=== PATIENT | female | born 1985 | race Caucasian/White ===

== ENCOUNTER 2017-05-05 18:19 | Observation (INO) | payer OTHER ==
--- NOTE | 2017-05-05 18:39 | ED ---
General Adult HPI - General Chief complaint: OB/Uterine Contractions Stated complaint: Poss Ectopic Time Seen by Provider: 05/05/17 18:22 Source: patient, RN notes reviewed Mode of arrival: ambulatory Limitations: no limitations - History of Present Illness Initial comments: 31 yo female presents to the ER with cc of with right sided abdominal pain. Patient developed this right-sided abdominal pain a few days ago that led up and today she had the abdominal pain and she's had some vaginal bleeding. Patient states that she went to the hospital and they found out that she was as well as concern for UTI. Due to the as well as the fact that she has not IUD in place the hospital was concerned about a possible ectopic and sent her here for further workup. The patient states that her pain has improved with the morphine that they gave her. Patient states he was on the right side. Patient is a . Patient states that she is not currently having any other symptoms at this time. Patient denies any recent fever, chills, shortness of breath, chest pain, back pain, nausea vomiting, numbness or tingling, dysuria or hematuria, constipation or diarrhea, headaches or visual changes, or any other current symptoms. - Related Data Home Medications Medication Instructions Recorded Confirmed Multivitamins, Thera [Multivitamin 1 tab PO DAILY 05/05/17 05/05/17 (formulary)] Allergies Allergy/AdvReac Type Severity Reaction Status Date / Time No Known Allergies Allergy Verified 05/05/17 18:43 Review of Systems ROS Statement: Those systems with pertinent positive or pertinent negative responses have been documented in the HPI. ROS Other: All systems not noted in ROS Statement are negative. Past Medical History Past Medical History: No Reported History History of Any Multi-Drug Resistant Organisms: None Reported Past Surgical History: No Surgical Hx Reported, Cholecystectomy Additional Past Surgical History / Comment(s): IDU placed may 2016 Past Anesthesia/Blood Transfusion Reactions: No Reported Reaction Past Psychological History: Anxiety, Depression Smoking Status: Former smoker Past Alcohol Use History: None Reported, Occasional, Rare Past Drug Use History: None Reported - Past Family History Father Family Medical History: No Reported History General Exam - General Exam Comments Initial Comments: General: The patient is awake and alert, in no distress, and does not appear acutely ill. Eye: Pupils are equal, round and reactive to light, extra-ocular movements are intact; there is normal conjunctiva bilaterally. No signs of icterus. Ears, nose, mouth and throat: There are moist mucous membranes and no oral lesions. Neck: The neck is supple, there is no tenderness. Cardiovascular: There is a regular rate and rhythm. No murmur, rub or gallop is appreciated. Respiratory: Lungs are clear to auscultation, respirations are non-labored, breath sounds are equal. No wheezes, stridor, rales, or rhonchi. Gastrointestinal: Soft, non-distended, mild tenderness in right lower quadrant of the abdomen without masses or organomegaly noted. There is no rebound or guarding present. No CVA tenderness. Bowel sounds are unremarkable. Back: There is no tenderness to palpation in the midline. There is no obvious deformity. No rashes noted. Musculoskeletal: Normal ROM, no tenderness, There is no pedal edema. There is no calf tenderness or swelling. Sensation intact. Pulses equal bilaterally 2+. Neurological: CN II-XII intact, There are no obvious motor or sensory deficits. Coordination appears grossly intact. Speech is normal. Skin: Skin is warm and dry and no rashes or lesions are noted. Psychiatric: Cooperative, appropriate mood & affect, normal judgment. Limitations: no limitations External exam: Present: normal external exam Speculum exam: Present: vaginal bleeding (Minor), other (Patient did have quite a bit of tenderness noted on speculum exam. There is question if the strings were visualized or not.) By manual exam: Present: uterine tenderness. Absent: adnexal tenderness Course Vital Signs 05/05/17 05/05/17 18:26 19:58 Temperature 99.1 F 98.4 F Pulse Rate 82 72 Respiratory 18 21 Rate Blood Pressure 141/63 124/58 O2 Sat by Pulse 99 100 Oximetry Medical Decision Making - Medical Decision Making 31-year-old female presents to the emergency Department chief complaint of right lower quadrant abdominal pain in . At this time. Work from previous ER transfer was reviewed. This and will order an ultrasound. [facility]' [facility] This time ultrasound was reviewed that does not show an IUP with a malplaced IUD. Patient has no uterine tenderness on exam admits to uterine tenderness. There is question if the strings were visualized or not on exam. At this time Dr. Black this case with Dr. Carrizales who will come in and evaluate the patient. At this time the patient will be admitted for overnight observation per Dr. Carrizales. Patient is in agreement with this plan. - Radiology Data Radiology results: report reviewed, image reviewed Disposition Clinical Impression: Abdominal pain affecting Disposition: ADMITTED IP TO THIS [facility] Condition: Stable Referrals: Shadi Jones DO [Primary Care Provider] - 1-2 days Time of Disposition: 21:54 Decision Date: 05/05/17 Decision Time: 21:54
--- NOTE | 2017-05-05 19:53 | US ---
EXAMINATION TYPE: US OB <= 14 wk fetus DATE OF EXAM: 05/05/2017 COMPARISON: NONE CLINICAL HISTORY: Pain. EC patient with right pelvic pain and vaginal bleeding x 3 days with positive test taken at [facility] this afternoon; IUD per patient; EXAM PERFORMED: Transvaginal (TV) and Transabdominal (TA) EXAM MEASUREMENTS: GESTATIONAL AGE / DATING Physician Established: not established Dates by LMP: ( 1 weeks/5 days) EDC: 01/28/2018 First Scan: today Dates by Current Scan for: no IUP seen MATERNAL ANATOMY Uterus: 9.6 x 6.2 x 5.4cm; multiple small Nabothian cysts in Cervix with largest = 0.5 x 0.6 x 0.4cm Endometrium: IUD is noted abnormally located in mid and lower endometrium with horizontal bar of "T" shaped IUD, noted as parallel hyperechoic lines, and is seen within left myometrium. Right Ovary: 3.8 x 2.7 x 2.8cm; multiple follicles with largest = 1.6 x 1.1 x 0.9cm Left Ovary: 4.0 x 2.9 x 2.8cm; follicle = 2.0 x 1.9 x 2.0cm; color flow and arterial/venous PW Dopple r is documented in bilateral ovary Post CDS / Adnexa: heterogeneous fullness is noted medial to right ovary and right tubal ca n not be excluded at this time if patient is Presence of free fluid: complex fluid is noted in posterior CDS = 7.2 x 4.4 x 1.4 x 0.523 = 23.2ml and is abnormal as is > 10ml. Presence of corpus luteal cyst: not seen Presence of subchorionic bleed: no IUP seen GESTATION / SURVEY N IUP is seen Date of LMP: 04/23/2017 Beta HcG (if available): NA IMPRESSION: No evidence of a gestational sac. IUD is noted. IUD appears malpositioned in the lower uterine segmen t. Mild free fluid.
[2017-05-05] MEDS ORDERED: MORPHINE SULFATE 4 MG/ML SYRINGE IV STA (20:12)
[2017-05-05 21:55] LABS: Basophils % (A) 1 %; CHCM 34.1; Eosinophils # (A) 0.1 k/uL (0-0.7); Eosinophils % (A) 1 %; HCT 39.7 % (34.0-46.0); HDW 2.53; HGB 13.6 gm/dL (11.4-16.0); Luc # (Auto) 0.15; Luc % (Auto) 2; Lymphocytes # (A) 1.7 k/uL (1.0-4.8); Lymphocytes % (A) 20 %; MCH 29.2 pg (25.0-35.0); MCHC 34.2 g/dL (31.0-37.0); MCV 85.4 fL (80.0-100.0); Mean Platelet Volume 8.2; Monocytes # (A) 0.3 k/uL (0-1.0); Monocytes % (A) 4 %; Neutrophils # (A) 6.4 k/uL (1.3-7.7); Neutrophils % (A) 74 %; RBC 4.65 m/uL (3.80-5.40); RDW 14.8 % (11.5-15.5); WBC 8.7 k/uL (3.8-10.6); WBC (Perox) 8.55
[2017-05-05] MEDS ORDERED: ONDANSETRON 4 MG/2 ML VIAL IVP PRN (22:04)
[2017-05-05 22:06] LABS: ALT 80 U/L (9-52); AST 95 U/L (14-36); Alkaline Phosphatase 99 U/L (38-126); Anion Gap 10 mmol/L; Bilirubin, Delta 0.4 mg/dL (0.0-0.2); Blood Urea Nitrogen 10 mg/dL (7-17); Calcium 9.1 mg/dL (8.4-10.2); Carbon Dioxide 21 mmol/L (22-30); Chloride 107 mmol/L (98-107); Glucose 103 mg/dL (74-99); Non-African American GFR(MDRD) >60 (>60 ml/min/1.73 sqM); Potassium 4.1 mmol/L (3.5-5.1); Sodium 138 mmol/L (137-145); Total Bilirubin 0.6 mg/dL (0.2-1.3); Total Protein 7.1 g/dL (6.3-8.2)
[2017-05-05] MEDS ORDERED: BUTORPHANOL 1 MG/ML 1 ML VIAL IV PRN (22:07)
[2017-05-05] MEDS ORDERED: LACTATED RINGERS 1,000 ML IV SCH (22:15)
--- NOTE | 2017-05-05 22:26 | P.HPOB ---
History of Present Illness H&P Date: 05/05/17 Chief Complaint: Pelvic pain, IUD and positive test This patient is a pleasant 31-year-old 7 para 6 female who is transferred from an outside hospital with a positive test and an IUD in place. Patient states that she began having lower abdominal pain on Monday of this week, her last menstrual cycle was approximately 2 weeks ago and she began bleeding as well. Patient had an ParaGard IUD placed by Dr. Armstrong on . She states that she's been having regular menstrual cycles and has not missed any. Patient went to an outside hospital and was found to have a hCG of 359 and subsequently was transferred here for further evaluation. Pelvic ultrasound here demonstrates the IUD to be intimate abnormal position in the lower left uterine segment in the myometrium. There also appears to be some fullness in the right adnexa with some complex fluid collection in the posterior cul-de-sac, mild. Patient currently is not having any significant pain however she was given some morphine upon arrival at the outside hospital. Patient lives in [facility]. Hemoglobin at the outside hospital was 13.5 and appears to be the same here, repeat hCG is pending. Review of Systems Constitutional: Reports as per HPI Cardiovascular: Denies chest pain, Denies shortness of breath Respiratory: Denies cough Genitourinary: Reports as per HPI, Reports abnormal vaginal bleeding, Reports pelvic pain, Reports Menstruation: Reports as per HPI Past Medical History Past Medical History: No Reported History History of Any Multi-Drug Resistant Organisms: None Reported Past Surgical History: Breast Surgery, Cholecystectomy Additional Past Surgical History / Comment(s): IDU placed may 2016 Past Anesthesia/Blood Transfusion Reactions: No Reported Reaction Past Psychological History: Anxiety, Depression Smoking Status: Former smoker Past Alcohol Use History: None Reported, Occasional, Rare Past Drug Use History: None Reported - Past Family History Father Family Medical History: No Reported History Medications and Allergies Home Medications Medication Instructions Recorded Confirmed Type Multivitamins, Thera [Multivitamin 1 tab PO DAILY 05/05/17 05/05/17 History (formulary)] Allergies Allergy/AdvReac Type Severity Reaction Status Date / Time No Known Allergies Allergy Verified 05/05/17 18:43 Exam - Vital Signs Vital signs: Vital Signs Temp Pulse Resp BP Pulse Ox 07/21/17 19:58 98.4 F 72 21 124/58 100 05/05/17 18:26 99.1 F 82 18 141/63 99 Intake and Output 05/05/17 05/05/17 05/05/17 06:59 14:59 22:59 Other: Voiding Method Toilet Weight 140.16 kg Patient Weight 05/06/17 06:59 Weight 140.16 kg - OBG Physical Exam Abdomen: Abdominal exam shows no significant pain with palpation, there is no rebound, there is no guarding, there is no distention. Abdomen: bowel sounds normal, no diffuse tenderness, no bruit present, no guarding noted, no hepatomegaly, no splenomegaly, no mass Vulva: both: normal Cervix: no lesion (IUD strings are just visible inside of the cervix.), no discharge Uterus: normal size Results Result Diagrams: 05/05/17 21:45 Assessment and Plan (1) Intrauterine device (IUD) contraceptive failure resulting in Narrative/Plan: This is a pleasant 31-year-old 7 para 6 female who presents with pelvic pain, positive hCG, and with apparent malpositioned IUD. Concern at this time is for an ectopic . There is a possibility that this is a spontaneous miscarriage or early intrauterine because the patient had a normal menstrual cycle approximately 2 weeks ago. Patient's pain at this time is not significant however because the ultrasound does indicate there is some free fluid in the pelvis, albeit a small amount, I have offered her admission for observation because she lives a bit of a distance away from the hospital. I also explained to her that based on 1 hCG level it is not 100% that she does have an ectopic , although given her clinical situation with an IUD and fluid in the cul-de-sac the likelihood is very high. I did also discuss with her treatment options including methotrexate and surgical options if she noted evidence of a ongoing ectopic rupture. Patient does not want surgery and is very amendable to a trial of methotrexate. Plan at this time is to attempt removal of the IUD and admit this patient for a repeat beta hCG in the morning. If I am able to remove the IUD and her hCG is going down and then I did recommend to go ahead with methotrexate treatment at this time. Patient is agreeable to this plan. If I am unable to remove the IUD, the patient does understand she may need surgical removal of the IUD by hysteroscopy D&C. All of the patient and 's questions were answered. Status: Acute (2) Malpositioned IUD Status: Acute (3) Pelvic pain Status: Acute
--- NOTE | 2017-05-05 22:30 | P.PCN ---
Date of Procedure: 05/05/17 Preoperative Diagnosis: Retained/malpositioned IUD Postoperative Diagnosis: Same Procedure(s) Performed: IUD removal Implants: Anesthesia: none Surgeon: Jack Carrizales Indications for Procedure: Operative Findings: Description of Procedure: Speculum was placed into the vagina. The IUD strings were visible just inside the cervical os. Using a ring forceps, I was able to remove a ParaGard IUD intact with gentle traction. Although the IUD did appear to be somewhat adherent, examination of the IUD shows it to be removed completely intact without defects. Patient tolerated the procedure well.
[2017-05-06 00:09] VITALS: BMI 53.0
[2017-05-06 05:33] LABS: Basophils % (A) 0 %; CH 28.7; CHCM 33.6; Eosinophils # (A) 0.1 k/uL (0-0.7); Eosinophils % (A) 1 %; HCT 38.1 % (34.0-46.0); HDW 2.49; HGB 12.8 gm/dL (11.4-16.0); Luc # (Auto) 0.14; Luc % (Auto) 2; Lymphocytes % (A) 25 %; MCH 28.8 pg (25.0-35.0); MCHC 33.7 g/dL (31.0-37.0); MCV 85.5 fL (80.0-100.0); Monocytes # (A) 0.4 k/uL (0-1.0); Monocytes % (A) 5 %; Neutrophils # (A) 5.3 k/uL (1.3-7.7); Neutrophils % (A) 67 %; RBC 4.46 m/uL (3.80-5.40); RDW 14.3 % (11.5-15.5); WBC 7.9 k/uL (3.8-10.6); WBC (Perox) 8.36
[2017-05-06 05:42] LABS: Bilirubin, Delta 0.2 mg/dL (0.0-0.2); Total Bilirubin 0.5 mg/dL (0.2-1.3); Total Protein 6.2 g/dL (6.3-8.2)
[2017-05-06 05:56] LABS: HCG,Quantitative Serum 175.3 mIU/mL
--- NOTE | 2017-05-06 07:33 | P.PN ---
Progress Note - Text Patient was resting overnight without any significant pain. Bleeding is minimal as well. Vital signs are stable and she is afebrile. Beta hCG last evening was 248 here in 350 at the outside hospital. Patient's repeat beta hCG this morning is 175. Hemoglobin is stable at 12.8. Of note however, patient's liver function tests were mildly elevated on admission and still are elevated slightly more this morning. AST is 1:15 and ALTs is 104. Examination this morning shows the patient's abdomen to be soft, nontender, without evidence of any acute processes. Patient was given clear liquids overnight and I advanced her to regular diet this morning. It is my impression that this patient has either a resolving ectopic or a complete . I discussed the fact that her liver function tests were elevated and she is not an ideal methotrexate candidate because of this. I believe this patient is stable for discharge home to have repeat blood work done Monday morning and follow up in the office Monday. I had a long discussion with the patient about signs and symptoms and concerns that she should call me for the meantime. I also recommended decreased activities until it appears this is completely resolved. She is agreeable to this plan. Plan at this time is to repeat her blood work at approximately noon on Monday and she'll follow up with Dr. Armstrong 1:30 after that.
--- NOTE | 2017-05-06 07:37 | P.DS ---
Providers Date of admission: 05/05/17 21:56 Expected date of discharge: 05/06/17 Attending physician: Eduardo Armstrong Primary care physician: Shadi Jones - Discharge Diagnosis(es) (1) Intrauterine device (IUD) contraceptive failure resulting in Current Visit: Yes Status: Acute (2) Malpositioned IUD Current Visit: Yes Status: Acute (3) Pelvic pain Current Visit: Yes Status: Acute Hospital Course: Please see dictated H&P for intimate details of this patient's admission. Brief summary this is a pleasant 31-year-old 7 para 6 female who was found to have a positive test with an embedded IUD. Patient's IUD was removed. Patient was observed overnight due to the distance from the hospital that she lived. Patient did not have any significant pain and beta hCG was dramatically decreasing. Patient was noted to have elevated liver function tests mildly on admission. The following morning patient's felt to be stable for discharge home follow up in our office in 48 hours with repeat blood work. She is given strict instructions to call should any evidence of worsening symptomatology. Patient Condition at Discharge: Stable Plan - Discharge Summary New Discharge Prescriptions: No Action Multivitamins, Thera [Multivitamin (formulary)] 1 tab PO DAILY Discharge Medication List Multivitamins, Thera [Multivitamin (formulary)] 1 tab PO DAILY 05/05/17 [History ] Follow up Appointment(s)/Referral(s): Eduardo Armstrong DO [Doctor of Osteopathic Medicine] - 05/08/17 1:30 pm (Please get your blood work done as directed at approximately 12 or 12:30 on Monday prior to your appointment.) Patient Instructions/Handouts: Ectopic (GEN) Activity/Diet/Wound Care/Special Instructions: No strenuous activity. No intercourse or anything per vagina. Please call if any excessive abdominal pain and/or vaginal bleeding. Discharge Disposition: HOME SELF-CARE
[2017-05-06 08:25] VITALS: BP 132/82; PULSE 73; RESP 20; TEMP 97.1
== END 2017-05-06 08:23 | disposition home or self-care (01) ==
LOC: EC 18:19 → 6PED 21:56
PROVIDERS: ADMIT Obstetrics & Gynecology; ATTEND Obstetrics & Gynecology
DX: O26.30 Retained intrauterine contraceptive device in pregnancy, unspecified trimester (principal); R10.2 Pelvic and perineal pain; Z87.891 Personal history of nicotine dependence; R79.89 Other specified abnormal findings of blood chemistry; Z32.01 Encounter for pregnancy test, result positive; Z3A.00 Weeks of gestation of pregnancy not specified
CPT/HCPCS: 58301; 96374; 99285; 36415; 86900; 86901; 80053; 80076; 82248; 85025 ×2; 86850; 84702 ×2; 93975; 76801; 76817; G0378 ×2; J2270

== ENCOUNTER → 2017-05-08 | Outpatient (CLI) | payer OTHER ==
[2017-05-08 13:05] LABS: CH 27.8; HCT 41.4 % (34.0-46.0); HGB 13.9 gm/dL (11.4-16.0); MCH 28.5 pg (25.0-35.0); MCHC 33.6 g/dL (31.0-37.0); MCV 84.7 fL (80.0-100.0); Mean Platelet Volume 7.7; RBC 4.88 m/uL (3.80-5.40); RDW 13.6 % (11.5-15.5); WBC 9.5 k/uL (3.8-10.6)
[2017-05-08 13:15] LABS: Bilirubin, Delta 0.2 mg/dL (0.0-0.2); Total Bilirubin 0.4 mg/dL (0.2-1.3); Total Protein 7.3 g/dL (6.3-8.2)
[2017-05-08 13:31] LABS: HCG,Quantitative Serum 61.9 mIU/mL
== END | disposition home or self-care (01) ==
LOC: LABWHC1 12:18
PROVIDERS: ATTEND Obstetrics & Gynecology
DX: O00.90 Unspecified ectopic pregnancy without intrauterine pregnancy (principal)
CPT/HCPCS: 36415; 80076; 84702; 85027

== ENCOUNTER → 2017-05-15 | Outpatient (CLI) | payer OTHER ==
[2017-05-15 14:44] LABS: ALT 58 U/L (9-52); AST 35 U/L (14-36)
[2017-05-15 14:57] LABS: HCG,Quantitative Serum <2.4 mIU/mL
== END | disposition home or self-care (01) ==
LOC: LABWHC1 14:05
PROVIDERS: ATTEND Obstetrics & Gynecology
DX: Z34.90 Encounter for supervision of normal pregnancy, unspecified, unspecified trimester (principal); Z3A.00 Weeks of gestation of pregnancy not specified
CPT/HCPCS: 36415; 84450; 84460; 84702

== ENCOUNTER → 2017-06-08 | Outpatient (CLI) | payer OTHER ==
[2017-06-08 15:30] LABS: Basophils # (A) 0.1 k/uL (0-0.2); Basophils % (A) 1 %; CH 28.8; CHCM 33.5; Eosinophils # (A) 0.2 k/uL (0-0.7); Eosinophils % (A) 2 %; HCT 42.8 % (34.0-46.0); HDW 2.51; HGB 13.9 gm/dL (11.4-16.0); Luc # (Auto) 0.16; Luc % (Auto) 2; Lymphocytes # (A) 2.6 k/uL (1.0-4.8); Lymphocytes % (A) 28 %; MCHC 32.5 g/dL (31.0-37.0); MCV 86.3 fL (80.0-100.0); Mean Platelet Volume 8.2; Monocytes # (A) 0.4 k/uL (0-1.0); Monocytes % (A) 5 %; Neutrophils # (A) 5.7 k/uL (1.3-7.7); Neutrophils % (A) 63 %; RBC 4.96 m/uL (3.80-5.40); RDW 14.2 % (11.5-15.5); WBC 9.1 k/uL (3.8-10.6); WBC (Perox) 8.21
== END | disposition home or self-care (01) ==
LOC: LABPAT 15:04
PROVIDERS: ATTEND Obstetrics & Gynecology
DX: Z01.812 Encounter for preprocedural laboratory examination (principal)
CPT/HCPCS: 36415; 85025

== ENCOUNTER 2017-06-14 06:17 | Day surgery (SDC) | payer OTHER ==
[2017-06-08 09:12] VITALS: BMI 53.0
[~2017-06-14 06:17] MED LIST: DEXAMETHASONE SOD PHOSPHATE 10 MG/ML 1 ML VIAL IV ONE; HYDROmorphone 1 MG/ML 1 ML SYRINGE IVP PRN; LACTATED RINGERS 1,000 ML IV SCH; ONDANSETRON 4 MG/2 ML VIAL IVP ONE; Pre Op ABX Message 1 EACH MISC MISCELLANE ONE
[2017-06-14] MEDS ORDERED: SCOPOLAMINE 1.5MG/72HR PATCH TRANSDERM ONE (07:07)
[2017-06-14] MEDS ORDERED: LIDOCAINE 1% 20 ML VIAL (10MG/ML) FOR IV START INTRADERMA ONE (07:08)
--- NOTE | 2017-06-14 07:32 | P.HPOB ---
History of Present Illness H&P Date: 06/14/17 Chief Complaint: Family planning Patient is a 31-year-old female who is completed her family planning and desires permanent sterilization. She has tried multiple other forms of control including IUDs and On. Her has a heart condition and cannot have a vasectomy. Risks/ benefits/alternatives to laps scopic tubal were discussed with the patient in detail and her specific case due to her morbid obesity specific risks including vessel damage anesthetic risks were outlined in great detail. However due to her 's medical issues and the fact that she is unable to take control pills and no other control seems to be working other than condoms we're proceeding with a laparoscopic tubal ablation. On physical exam this is a morbidly obese female whose HEENT is unremarkable. Heart regular, lungs clear , extremities without pain. Pelvic exam is otherwise unremarkable. Assessment family planning. Plan left scopic tubal occlusion with Filshie clips. Past Medical History Past Medical History: No Reported History Additional Past Medical History / Comment(s): MISSED AB 05/05/17 History of Any Multi-Drug Resistant Organisms: None Reported Past Surgical History: Breast Surgery, Cholecystectomy Additional Past Surgical History / Comment(s): IUD PLACEMENT Past Anesthesia/Blood Transfusion Reactions: No Reported Reaction Past Alcohol Use History: None Reported, Occasional, Rare - Past Family History Father Family Medical History: COPD, Diabetes Mellitus, Hyperlipidemia, Hypertension, Myocardial Infarction ([place]) Mother Family Medical History: Cancer Additional Family Medical History / Comment(s): BREAST Medications and Allergies Home Medications Medication Instructions Recorded Confirmed Type No Known Home Medications [No 06/08/17 06/08/17 History Known Home Medications] Allergies Allergy/AdvReac Type Severity Reaction Status Date / Time No Known Allergies Allergy Verified 06/08/17 09:05 Exam Osteopathic Statement: *. No significant issues noted on an osteopathic structural exam other than those noted in the History and Physical/Consult. - Vital Signs Vital signs: Vital Signs Temp Pulse Resp BP Pulse Ox 06/14/17 06:40 97.8 F 76 18 123/77 99
[2017-06-14] MEDS ORDERED: PROPOFOL 10 MG/ML 20 ML VIAL IV ONE ×2 (07:40)
[2017-06-14] MEDS ORDERED: NEOSTIGMINE 1 MG/ML 10 ML VIAL ONE (07:40)
[2017-06-14] MEDS ORDERED: LIDOCAINE 1% INJ 10MG/ML (20 ML MDV) ONE (07:40)
[2017-06-14] MEDS ORDERED: MIDAZOLAM 2 MG/2 ML VIAL ONE (07:40)
[2017-06-14] MEDS ORDERED: HYDROmorphone (PF) 1 MG/ML ONE (07:40)
[2017-06-14] MEDS ORDERED: fentaNYL (PF) 50 MCG/ML 2 ML AMP ONE (07:40)
[2017-06-14] MEDS ORDERED: GLYCOPYRROLATE 0.2 MG/ML 2 ML VIAL ONE (07:40)
[2017-06-14] MEDS ORDERED: KETOROLAC 30 MG/ML 1 ML VIAL ONE (07:40)
[2017-06-14] MEDS ORDERED: ROCURONIUM BROMIDE 10 MG/ML 10 ML VIAL IV ONE (07:40)
[2017-06-14] MEDS ORDERED: BUPIVACAINE (PF) 0.25% 30 ML VIAL SQ ONE ×2 (08:01)
[2017-06-14] MEDS ORDERED: LACTATED RINGERS 1,000 ML IV ONE (08:18)
--- NOTE | 2017-06-14 08:18 | P.OP ---
Date of Procedure: 06/14/17 Preoperative Diagnosis: Family planning Postoperative Diagnosis: Same Procedure(s) Performed: Laps scopic tubal occlusion. With Filshie clips Implants: Anesthesia: SOPHIEA Surgeon: Eduardo Armstrong Estimated Blood Loss (ml): 5 Pathology: none sent Condition: stable Disposition: same day Indications for Procedure: Operative Findings: Normal female anatomy Description of Procedure: Patient was taken to the operating suite where a general anesthetic was found be adequate. She was prepped and draped in the normal sterile fashion and placed in the dorsal lithotomy position. Initially a speculum was inserted into the vagina and the anterior lip of the cervix identified and grasped with an Allis clamp. Uterus was then sounded to 9 cm and a uterine manipulator was inserted without difficulty. Red rubber catheter was then used to drain the bladder of urine. This was then removed speculum gloves were changed and attention was turned to the abdominal portion of the procedure. Initially 3 mL of quarter percent Marcaine were injected periumbilically and through this injected anesthetic a 5 mm skin incision was made. With a long 5 mm port and sleeve using the camera for direct visualization camera was placed into the abdomen. Once peritoneal placement was assured gas was left fully insufflate the abdomen and patient placed in Trendelenburg position second 8 mm skin incision was made 3 cm above the pubic symphysis in the midline and port and sleeve were inserted. Once this was accomplished uterus was elevated and observations pelvis were made. Normal female anatomy is noted therefore one clip was placed on the right tube than the other on the left tube 2 cm from uterine cornu. Once this was accomplished seeing no bleeding from the mesosalpinx instruments are removed and gas was allowed to expel from the abdomen. 5 deep breaths were provided during this process. Once completed trochars removed and 4-0 Vicryl was used to close incision subcuticularly. The remaining 7 mL of quarter percent Marcaine with was then injected around the incisions and the uterine manipulator was removed. Sponge, lap, needle counts were all correct 2. Patient was then taken to the recovery room in stable and satisfactory condition. Plan - Discharge Summary New Discharge Prescriptions: New Acetaminophen-Codeine 300-30mg [Tylenol #3] 1 tab PO Q4H PRN #30 tablet PRN Reason: Pain Ibuprofen [Motrin] 600 mg PO Q6HR PRN #30 tab PRN Reason: Pain Discharge Medication List Acetaminophen-Codeine 300-30mg [Tylenol #3] 1 tab PO Q4H PRN #30 tablet [Rx] Ibuprofen [Motrin] 600 mg PO Q6HR PRN #30 tab 06/14/17 [Rx] Follow up Appointment(s)/Referral(s): Eduardo Armstrong DO [Doctor of Osteopathic Medicine] - 1 Week Activity/Diet/Wound Care/Special Instructions: No heavy lifting, limit stairs and driving, and pelvic rest. If any high temperatures, heavy bleeding, or severe pain call my office Discharge Disposition: HOME SELF-CARE
[2017-06-14 08:43] VITALS: TEMP 97.4
[2017-06-14 09:43] VITALS: BP 128/80; PULSE 54; RESP 18
== END 2017-06-14 10:09 | disposition home or self-care (01) ==
LOC: OR 06:17
PROVIDERS: ATTEND Obstetrics & Gynecology
DX: Z30.2 Encounter for sterilization (principal); E66.01 Morbid (severe) obesity due to excess calories
CPT/HCPCS: 81025; 58671; J2250; J1100; J2710; J2405; J2001; J3010; J1885; J1170; J2704

== ENCOUNTER 2020-09-15 06:12 | Day surgery (SDC) | payer BC, OTHER ==
[2020-09-08 16:01] VITALS: BMI 54.9
--- NOTE | 2020-09-14 12:18 | P.HPOB ---
History of Present Illness H&P Date: 09/14/20 Chief Complaint: Menorrhagia Patient is a 35-year-old female with heavy vaginal bleeding or any symptoms have been going on for number of months and her creating havoc with her activities of daily living. She is requesting procedure for cessation of bleeding and therefore a NovaSure ablation has been scheduled. She is also scheduled for a D&C with hysteroscopy due to age past 35. Risks/benefits/alternatives to this procedure were reviewed with the patient in detail and all questions were answered for her prior to proceeding to the operative. She does have a history of tube ligation in the past. Past Medical History Past Medical History: No Reported History Additional Past Medical History / Comment(s): HEAVY MENSES History of Any Multi-Drug Resistant Organisms: None Reported Past Surgical History: Breast Surgery, Cholecystectomy, Tubal Ligation Additional Past Surgical History / Comment(s): IUD PLACEMENT Past Anesthesia/Blood Transfusion Reactions: No Reported Reaction Smoking Status: Former smoker - Past Family History Father Family Medical History: COPD, Diabetes Mellitus, Hyperlipidemia, Hypertension, Myocardial Infarction ([place]) Mother Family Medical History: Cancer Additional Family Medical History / Comment(s): BREAST Medications and Allergies Home Medications Medication Instructions Recorded Confirmed Type No Known Home Medications 09/08/20 09/08/20 History Allergies Allergy/AdvReac Type Severity Reaction Status Date / Time No Known Allergies Allergy Verified 09/08/20 15:52 Exam Osteopathic Statement: *. No significant issues noted on an osteopathic structural exam other than those noted in the History and Physical/Consult. - OBG Physical Exam Breast: both: normal (no masses) Abdomen: bowel sounds normal, no diffuse tenderness, no bruit present, no guarding noted, no hepatomegaly, no splenomegaly, no mass Vulva: both: normal Vagina: normal moisture, no discharge Cervix: no lesion, no discharge Uterus: normal size, normal contour Adnexa: both: normal Anus/Rectum: normal perianal skin, no rectal mass, no hemorrhoids, heme negative
[~2020-09-15 06:12] MED LIST changes: -DEXAMETHASONE SOD PHOSPHATE 10 MG/ML 1 ML VIAL IV ONE; +DEXAMETHASONE SOD PHOSPHATE 4 MG/ML 1 ML VIAL IV ONE; +HYDROmorphone 0.5 MG/0.5 ML SYRINGE IVP PRN; -HYDROmorphone 1 MG/ML 1 ML SYRINGE IVP PRN; +LIDOCAINE 1% (10MG/ML) FOR IV START INTRADERMA PRN; +MIDAZOLAM 2 MG/2 ML VIAL IV PRN
[2020-09-15] MEDS ORDERED: LACTATED RINGERS 1,000 ML IV ONE ×2 (06:43→08:55)
[2020-09-15] MEDS ORDERED: LIDOCAINE 1% (10MG/ML) FOR IV START INTRADERMA ONE (06:44)
[2020-09-15] MEDS ORDERED: fentaNYL (PF) 50 MCG/ML 2 ML AMP ONE (07:34)
[2020-09-15] MEDS ORDERED: SUCCINYLCHOLINE CHLORIDE VIAL 200 MG/10 ML VIAL IV ONE (07:34)
[2020-09-15] MEDS ORDERED: MIDAZOLAM 2 MG/2 ML VIAL ONE (07:34)
[2020-09-15] MEDS ORDERED: GLYCOPYRROLATE 0.2 MG/ML 2 ML VIAL ONE (07:34)
[2020-09-15] MEDS ORDERED: NEOSTIGMINE 1 MG/ML 10 ML VIAL ONE (07:34)
[2020-09-15] MEDS ORDERED: KETOROLAC 15 MG/ML 1 ML VIAL ONE (07:34)
[2020-09-15] MEDS ORDERED: ACETAMINOPHEN IV (For NPO) 1,000 MG/100 ML VIAL ONE (07:34)
[2020-09-15] MEDS ORDERED: ROCURONIUM 10 MG/ML (10 ML VIAL) IV ONE (07:34)
[2020-09-15] MEDS ORDERED: LIDOCAINE 1% INJ 10MG/ML (20 ML MDV) ONE (07:34)
[2020-09-15] MEDS ORDERED: PROPOFOL 10 MG/ML 20 ML VIAL IV ONE (07:34)
--- NOTE | 2020-09-15 08:05 | P.OP ---
Date of Procedure: 09/15/20 Preoperative Diagnosis: Menorrhagia Postoperative Diagnosis: Same Procedure(s) Performed: D&C was hysteroscopy NovaSure ablation Anesthesia: SOPHIEA Surgeon: Eduardo Armstrong Estimated Blood Loss (ml): 3 IV fluids (ml): 250 Pathology: other (Uterine curettings) Condition: stable Disposition: same day Operative Findings: Pathology pending Description of Procedure: Patient was taken to the operative suite where general anesthetic was found be adequate. She was prepped and draped in normal sterile fashion and placed in the dorsal lithotomy position. Initially a weighted speculum was inserted in the vagina and the anterior lip of the cervix identified and grasped with Allis clamp. It was then sounded to 10 cm and dilated. Camera was then inserted. List of endometrium was noted. Camera was then removed and sharp curettings of the endometrium were obtained. This tissue was placed on Telfa and sent to pathology for evaluation. Once completed NovaSure systems inserted with length of 5 and a width of 3.8 it was tested and once it passes patency test was enabled and activated. The burn lasted 1 minute 38 seconds. Conclusion the burn system was removed camera was reinserted with excellent burn noted. All incidents were then removed. Sponge, lap, needle counts were all correct 2. Patient was then taken to the recovery room in stable and satisfactory condition. Plan - Discharge Summary Discharge Rx Participant: No New Discharge Prescriptions: New Ibuprofen [Motrin] 600 mg PO Q6HR PRN #30 tab PRN Reason: Pain No Action ALPRAZolam [Xanax] 0.25 mg PO DAILY PRN PRN Reason: Anxiety Discharge Medication List ALPRAZolam [Xanax] 0.25 mg PO DAILY PRN 09/15/20 [History] Ibuprofen [Motrin] 600 mg PO Q6HR PRN #30 tab 09/15/20 [Rx] Follow up Appointment(s)/Referral(s): Eduardo Armstrong DO [Doctor of Osteopathic Medicine] - 1 Week Activity/Diet/Wound Care/Special Instructions: No Heavy lifting, limit stairs and driving and pelvic rest today. If any high temperatures, heavy bleeding, or severe pain call my office
[2020-09-15 08:23] VITALS: TEMP 96.8
[2020-09-15 08:26] VITALS: RESP 16
[2020-09-15 09:02] VITALS: BP 142/87; PULSE 57
== END 2020-09-15 09:35 | disposition home or self-care (01) ==
LOC: OR 06:12
PROVIDERS: ATTEND Obstetrics & Gynecology
DX: N92.0 Excessive and frequent menstruation with regular cycle (principal); K21.9 Gastro-esophageal reflux disease without esophagitis; E66.01 Morbid (severe) obesity due to excess calories; Z88.1 Allergy status to other antibiotic agents; Z98.890 Other specified postprocedural states; Z90.49 Acquired absence of other specified parts of digestive tract; Z98.51 Tubal ligation status; Z97.5 Presence of (intrauterine) contraceptive device; Z87.891 Personal history of nicotine dependence; Z68.43 Body mass index [BMI] 50.0-59.9, adult; Z79.899 Other long term (current) drug therapy; Z82.5 Family history of asthma and other chronic lower respiratory diseases; Z83.3 Family history of diabetes mellitus; Z83.438 Family history of other disorder of lipoprotein metabolism and other lipidemia; Z82.49 Family history of ischemic heart disease and other diseases of the circulatory system; Z80.3 Family history of malignant neoplasm of breast
CPT/HCPCS: 81025; 88305; 58563; J2250; J0330; J1100; J2710; J2405; J2001; J3010; J0131; J1885; J2704